=== PATIENT | female | born 1980 | race Caucasian/White ===

== ENCOUNTER 2016-08-05 18:02 | Emergency (ER) | payer BC ==
[2016-08-05 18:18] VITALS: BP 105/70
--- NOTE | 2016-08-05 18:47 | UC ---
Throat Pain/Nasal Gerald HPI - HPI Summary HPI Summary: SINUS PRESSURE AND PAIN FOR ONE WEEK NO FEVER. RIGHT SIDED SINUS PRESSURE WORSENING. - History of Current Complaint Chief Complaint: UC Stated Complaint: SINUS PAIN Time Seen by Provider: 08/05/16 18:17 Hx Obtained From: Patient Hx Last Menstrual Period: 20 weeks Onset/Duration: Gradual Onset, Lasting Weeks, Still Present Severity: Moderate Cough: Nonproductive Associated Signs & Symptoms: Positive: Sinus Discomfort, Nasal Discharge - Epiglottits Risk Factors Epiglottis Risk Factors: Negative - Allergies/Home Medications Allergies/Adverse Reactions: Allergies Allergy/AdvReac Type Severity Reaction Status Date / Time Latex Allergy Rash Verified 08/05/16 18:18 Oxycodone [From Percocet] Allergy Swelling Verified 08/05/16 18:18 Home Medications: Home Medications Prenat Vit W/ Iron Carbonyl-Fe [Ob Complete/Dha] 1 cap PO 08/05/16 [History] PMH/Surg Hx/FS Hx/Imm Hx Previously Healthy: Yes Respiratory History Of: Reports: Asthma, Bronchitis, Pneumonia GI/ History Of: Reports: Ulcer - Surgical History Surgical History: None - Family History Known Family History: Negative: Seizure Disorder - Social History Occupation: Employed Full-time Lives: With Family Alcohol Use: None Substance Use Type: None Smoking Status (MU): Never Smoked Tobacco Review of Systems Constitutional: Negative Skin: Negative Eyes: Negative ENT: Ear Ache, Nasal Discharge Respiratory: Cough Cardiovascular: Negative Gastrointestinal: Negative Genitourinary: Negative Motor: Negative Neurovascular: Negative Musculoskeletal: Negative Neurological: Negative Psychological: Negative All Other Systems Reviewed And Are Negative: Yes Physical Exam Triage Information Reviewed: Yes Appearance: Well-Appearing, Well-Nourished, Pain Distress - MILD Vital Signs: Initial Vital Signs Temp 98.7 F 08/05/16 18:10 Pulse 112 08/05/16 18:10 Resp 18 08/05/16 18:10 BP 105/70 08/05/16 18:10 Pulse Ox 98 08/05/16 18:10 Vital Signs Reviewed: Yes Eye Exam: Normal ENT: Positive: Nasal congestion, TM bulging, TM dull, Other: - RIGHT MAXILLARY TENDERNESS Dental Exam: Normal Neck exam: Normal Neck: Positive: Supple, Nontender, No Lymphadenopathy Respiratory Exam: Normal Respiratory: Positive: Chest non-tender, Lungs clear, Normal breath sounds, No respiratory distress, No accessory muscle use Cardiovascular Exam: Normal Cardiovascular: Positive: RRR, No Murmur, Pulses Normal Abdominal Exam: Normal Abdomen Description: Positive: Nontender, No Organomegaly Musculoskeletal Exam: Normal Musculoskeletal: Positive: Strength Intact, ROM Intact Neurological Exam: Normal Psychological Exam: Normal Psychological: Positive: Normal Response To Family Skin Exam: Normal Throat Pain/Nasal Course/Dx - Differential Dx/Diagnosis Differential Diagnosis/HQI/PQRI: Pharyngitis, Sinusitis, URI Provider Diagnoses: SINUSITIS Discharge - Discharge Plan Condition: Stable Disposition: HOME Prescriptions: Amoxicillin/Clavulanate TAB* [Augmentin TAB 875*] 875 mg PO BID #20 tab Patient Education Materials: Sinusitis (ED) Referrals: Aissatou Mendieta MD [Primary Care Provider] -
== END 2016-08-05 18:48 | disposition home or self-care (01) ==
LOC: UCEAST 18:02
DX: O26.892 Other specified pregnancy related conditions, second trimester (principal); Z3A.20 20 weeks gestation of pregnancy; J32.9 Chronic sinusitis, unspecified; Z88.5 Allergy status to narcotic agent
CPT/HCPCS: 99212; G0463

== ENCOUNTER 2017-01-11 11:16 | Emergency (ER) | payer BC ==
[2017-01-11] MEDS ORDERED: Magnesium CITRATE* 300 ML BTL PO ONE (12:23)
[2017-01-11] MEDS ORDERED: NS 0.9% 1000 ML* 1,000 ML IV ONE (12:42)
[2017-01-11 14:34] VITALS: BP 128/79
--- NOTE | 2017-01-11 16:14 | ED ---
Abdominal Pain/Female - HPI Summary HPI Summary: Patient presents to ED with CC of constipation x 1 week. She is 2 weeks . She states she has had several issues with constipation in the past and has had to be manually disimpacted. She states she went to the pharmacy 2 hours ago and obtained an enema and mag citrate but has not gone yet. Last BM 1 week ago and was hard stool. She states the OTC medications make her feel ill and she prefers not to take anymore. Denies fevers, chills, sweats or weakness. Denies any other complaints at this time and is taking PO well. - History of Current Complaint Chief Complaint: EDAbdPain Stated Complaint: CONSTIPATION Time Seen by Provider: 01/11/17 12:01 Hx Obtained From: Patient ?: No Onset/Duration: Gradual Onset Timing: Constant Severity Initially: Moderate Severity Currently: Moderate Pain Intensity: 5 Pain Scale Used: 0-10 Numeric Location: Diffuse Radiates: No Character: Dull, Cramping Aggravating Factor(s): Nothing Alleviating Factor(s): Nothing Associated Signs and Symptoms: Positive: Negative - Risk Factors Ectopic Risk Factor: Negative Allergies/Adverse Reactions: Allergies Allergy/AdvReac Type Severity Reaction Status Date / Time Latex Allergy Rash Verified 08/05/16 18:18 Oxycodone [From Percocet] Allergy Swelling Verified 08/05/16 18:18 PMH/Surg Hx/FS Hx/Imm Hx Previously Healthy: Yes Respiratory History: Reports: Hx Asthma, Hx Pneumonia GI History: Reports: Hx Ulcer - Cancer History Cancer Type, Location and Year: none - Immunization History Hx Pertussis Vaccination: No Immunizations Up to Date: Unable to Obtain/Confirm Infectious Disease History: No Infectious Disease History: Denies: Traveled Outside the [place] in Last 30 Days - Family History Known Family History: Negative: Seizure Disorder - Social History Occupation: Unemployed Lives: With Family Alcohol Use: None Hx Substance Use: No Substance Use Type: Reports: None Hx Tobacco Use: No Smoking Status (MU): Never Smoked Tobacco Do You Chew or Dip Tobacco: No Have You Chewed or Dipped Tobacco in the LAST YEAR: No Review of Systems Constitutional: Negative Eyes: Negative Cardiovascular: Negative Respiratory: Negative Positive: Abdominal Pain, Other - constipation Positive: no symptoms reported, see HPI Musculoskeletal: Negative Neurological: Negative Psychological: Normal All Other Systems Reviewed And Are Negative: Yes Physical Exam Triage Information Reviewed: Yes Vital Signs On Initial Exam: Initial Vitals Temp Pulse Resp BP Pulse Ox 97.8 F 105 18 82/60 98 01/11/17 11:19 01/11/17 11:19 01/11/17 11:19 01/11/17 11:19 01/11/17 11:19 Vital Signs Reviewed: Yes Appearance: Positive: Well-Appearing, Well-Nourished Skin: Positive: Warm, Skin Color Reflects Adequate Perfusion Head/Face: Positive: Normal Head/Face Inspection Eyes: Positive: EOMI, BLANK, Conjunctiva Clear Neck: Positive: Supple, No Lymphadenopathy Respiratory/Lung Sounds: Positive: Clear to Auscultation, Breath Sounds Present Cardiovascular: Positive: Normal, RRR, Pulses are Symmetrical in both Upper and Lower Extremities Abdomen Description: Positive: Distended Musculoskeletal: Positive: Normal, Strength/ROM Intact Neurological: Positive: Sensory/Motor Intact, Alert, Oriented to Person Place, Time, Speech Normal Psychiatric: Positive: Normal - Mona Coma Scale Coma Scale Total: 15 Diagnostics - Vital Signs Vital Signs Temp Pulse Resp BP Pulse Ox 01/11/17 14:33 98 F 76 18 128/79 01/11/17 11:19 97.8 F 105 18 82/60 98 - Laboratory Lab Statement: Any lab studies that have been ordered have been reviewed, and results considered in the medical decision making process. Abdominal Pain Fem Course/Dx - Course Course Of Treatment: Patient given mag citrate 150 (she had already taken 150 2 hours prior) and lactulose. She refuses both of these meds. Iv fluids given. after 1.5 hours, patient requests to leave and provider stated she would be able to disimpact but it would not be immediate as the ED is very busy at this time. She is refusing other medications stating they make her abdomen hurt and she feels a "mass" in her rectum. She has had this issue several times before and has disimpacted herself in the past. She has appt with her PCP tomorrow and patient is told to follow up with her, GI referrals given and encouraged for any worsening symptoms to return to the ED for a manual disimpaction. No signs or symptoms of bowel obstruction otherwise. - Diagnoses Differential Diagnosis: Positive: Bowel Obstruction, Constipation Provider Diagnoses: Constipation Discharge - Discharge Plan Condition: Stable Disposition: HOME Patient Education Materials: Constipation (ED) Referrals: Aissatou Mendieta MD [Primary Care Provider] - Additional Instructions: Follow up with Dr. Hussein or Dr. Black next week Follow up with your PCP If symptoms become worse, you can come back to the ED immediately as discussed
== END 2017-01-11 14:33 | disposition home or self-care (01) ==
LOC: ED 11:16
DX: K59.00 Constipation, unspecified (principal); J45.909 Unspecified asthma, uncomplicated; Z88.5 Allergy status to narcotic agent
CPT/HCPCS: 96360; 99282; A9270-GY

== ENCOUNTER 2018-01-17 09:26 | Emergency (ER) | payer BC ==
--- NOTE | 2018-01-17 09:59 | ED ---
Upper Extremity Pain - HPI Summary HPI Summary: 37-year-old female presents with rash to her right elbow for the past month. States that a month ago she fell on her elbow and had an abrasion to that area. She states that she has been soaking it in Epsom salt for the past month. She states she did not realize a month had past till today with the abrasion not healing. she states there has been drainage from the abrasion. She states that her elbow feels warm. She has full range of motion. No numbness or tingling. She states that it is itchy. She denies any fevers. She states the scaling on the area started a couple days ago. She denies any chest pain shortness of breath. No chills. She states that she's been having right-sided rib pain. States she's had this before. States she is currently breast- feeding. She denies any redness to her breast. - History of Current Complaint Chief Complaint: EDGeneral Stated Complaint: RT ELBOW RASH Time Seen by Provider: 01/17/18 09:41 Hx Last Menstrual Period: 20 weeks - Allergies/Home Medications Allergies/Adverse Reactions: Allergies Allergy/AdvReac Type Severity Reaction Status Date / Time latex Allergy Rash Verified 01/17/18 09:49 PMH/Surg Hx/FS Hx/Imm Hx Endocrine/Hematology History: Denies: Hx Diabetes Respiratory History: Reports: Hx Asthma, Hx Pneumonia GI History: Reports: Hx Ulcer - Cancer History Cancer Type, Location and Year: none Infectious Disease History: No Infectious Disease History: Denies: Traveled Outside the [place] in Last 30 Days - Family History Known Family History: Negative: Seizure Disorder - Social History Alcohol Use: None Hx Substance Use: No Substance Use Type: Reports: None Hx Tobacco Use: No Smoking Status (MU): Never Smoked Tobacco Review of Systems Negative: Fever Positive: Other - rib pain. Negative: Chest Pain Negative: Shortness Of Breath Positive: Myalgia - right elbow pain Positive: Rash All Other Systems Reviewed And Are Negative: Yes Physical Exam Triage Information Reviewed: Yes Vital Signs On Initial Exam: Initial Vitals Temp Pulse Resp BP Pulse Ox 99.2 F 71 15 104/63 98 01/17/18 09:34 01/17/18 09:34 01/17/18 09:34 01/17/18 09:34 01/17/18 09:34 Vital Signs Reviewed: Yes Appearance: Positive: Well-Appearing Skin: Positive: Warm, Dry, Other - lesion on right elbow olecranon, erythema with scaling around olecranon Head/Face: Positive: Normal Head/Face Inspection Eyes: Positive: Normal, Conjunctiva Clear ENT: Positive: Pharynx normal Respiratory/Lung Sounds: Positive: Clear to Auscultation, Breath Sounds Present , Other - tenderness right side of ribs, normal breast no erythema Cardiovascular: Positive: Normal, RRR Musculoskeletal: Positive: Strength/ROM Intact - right elbow, Edema Right - elbow minimal, Other - good pulses Neurological: Positive: Normal Psychiatric: Positive: Normal Diagnostics - Vital Signs Vital Signs Temp Pulse Resp BP Pulse Ox 01/17/18 09:34 99.2 F 71 15 104/63 98 - Laboratory Lab Statement: Any lab studies that have been ordered have been reviewed, and results considered in the medical decision making process. - Radiology elbow Xray Interpretation: No Acute Changes Radiology Interpretation Completed By: Radiologist Course/Dx - Course Course Of Treatment: 37-year-old female presents with rash to her right elbow for the past month. States that a month ago she fell on her elbow and had an abrasion to that area. She states that she has been soaking it in Epsom salt for the past month. She states she did not realize a month had past till today with the abrasion not healing. she states there has been drainage from the abrasion. She states that her elbow feels warm. She has full range of motion. No numbness or tingling. She states that it is itchy. She denies any fevers. She states the scaling on the area started a couple days ago. She denies any chest pain shortness of breath. No chills. She states that she's been having right-sided rib pain. States she's had this before. States she is currently breast-feeding. She denies any redness to her breast. on exam has 1cm by 1cm lesion in center of olecranon with minimal surround erythema. has another lesion that is erythematous with scaling adjacent to the area. full ROM elbow. elbow xray normal. no joint effusion. will treat as potential cellulitis with keflex and due to scaling with give topical antifungal. patient also requesting diflucain as gets frequent yeast infection. patient understand and agrees with plan. - Diagnoses Differential Diagnosis/HQI/PQRI: Positive: Septic Arthritis, Other - cellulitis , abscess Provider Diagnoses: Traumatic open wound of right elbow with infection and delayed healing Discharge - Sign-Out/Discharge Documenting (check all that apply): Patient Departure - Discharge Plan Condition: Good Disposition: HOME Prescriptions: Cephalexin CAP* [Keflex CAP*] 500 mg PO BID #20 cap Fluconazole [Diflucan 150 MG (NF)] 150 mg PO ONCE #1 tab Ketoconazole 2 % CREAM (NF) [Nizoral 2% CREAM (NF)] 1 applic TOPICAL DAILY #1 tube Patient Education Materials: Cellulitis (ED) Referrals: Aissatou Mendieta MD [Primary Care Provider] - Additional Instructions: Take Keflex twice a day for 10 days Take diflucain if get yeast infection once apply ketoconazole to area of scaling daily Follow up with primary within 5 days Return to ED if develop fever, area of redness spreads, or any new or worsening symptoms - Billing Disposition and Condition Condition: GOOD Disposition: Home
--- NOTE | 2018-01-17 10:25 | RAD ---
INDICATION: Right elbow pain COMPARISON: None TECHNIQUE: AP, lateral, and oblique views were obtained. FINDINGS: The bony structures, joint spaces, and soft tissues are normal for age. There is no fat-pad displacement to suggest effusion IMPRESSION: NEGATIVE EXAMINATION
[2018-01-17 11:15] VITALS: BP 129/74
== END 2018-01-17 11:14 | disposition home or self-care (01) ==
LOC: ED 09:26
DX: S51.001A Unspecified open wound of right elbow, initial encounter (principal); L08.9 Local infection of the skin and subcutaneous tissue, unspecified; W19.XXXA Unspecified fall, initial encounter; Y92.9 Unspecified place or not applicable
CPT/HCPCS: 99282

== ENCOUNTER 2018-02-17 09:31 | Emergency (ER) | payer BC ==
--- NOTE | 2018-02-17 10:22 | ED ---
Progress - Progress Note Progress Note: Pt is a 37 y/o female who presents to the ED c/o SI. Tried to get pt to remove earrings and talked about proper piercing cleaning and hygiene. Pt took offense and became very resistant to speak about her mental health, stating that she needs to go home or speak to someone else because she does not feel safe. Will ask Dr. Quiroz to see pt, if he cannot then I will go back in. Course/Dx - Course Course Of Treatment: Dr. Quiroz accepts the pt. - Diagnoses Provider Diagnoses: Suicidal ideation Discharge - Sign-Out/Discharge Documenting (check all that apply): Sign-Out Patient Signing out patient TO: Russ Quiroz - Discharge Plan Referrals: Aissatou Mendieta MD [Primary Care Provider] - - Attestation Statements Document Initiated by Scribe: Yes Documenting Scribe: Stefani Díaz Provider For Whom Scribe is Documenting (Include Credential): Jeannette Palma MD Scribe Attestation: I, Stefani Díaz, scribed for Jeannette Palma MD on 02/17/18 at 1205.
--- NOTE | 2018-02-17 10:57 | ED ---
Psychiatric Complaint - HPI Summary HPI Summary: This patient is a 37 year old F presenting to [facility] accompanied by with a chief complaint of worsening suicidal ideation. She states she typically has SI , but she now finds it comforting. She denies any plans. She reports previous therapy and medication without relief. She reports recent stress due to strained parental and marital relationships. Patient is currently . Denies any other medical symptoms at this time. Denies drug or alcohol use besides medicinal marijuana. - History Of Current Complaint Chief Complaint: EDMentalHealth Time Seen by Provider: 02/17/18 10:36 Hx Obtained From: Patient Onset/Duration: Gradual Onset Timing: Constant Character: Depressed, Anxious Aggravating Factor(s): Recent Stress Alleviating Factor(s): Nothing Related History: Positive For: Prior Psychiatric Issues Has Suicidal: Reports: Thoughts. Denies: With A Plan Recent Stressor(s): family, , children - Allergies/Home Medications Allergies/Adverse Reactions: Allergies Allergy/AdvReac Type Severity Reaction Status Date / Time latex Allergy Rash Verified 02/17/18 09:51 oxycodone Allergy Hives Verified 02/17/18 10:35 PMH/Surg Hx/FS Hx/Imm Hx Endocrine/Hematology History: Denies: Hx Diabetes Respiratory History: Reports: Hx Asthma, Hx Pneumonia GI History: Reports: Hx Ulcer - Cancer History Cancer Type, Location and Year: none - Surgical History Surgery Procedure, Year, and Place: None. Infectious Disease History: No Infectious Disease History: Denies: Traveled Outside the [place] in Last 30 Days - Family History Known Family History: Negative: Seizure Disorder - Social History Alcohol Use: Occasionally Hx Substance Use: No Substance Use Type: Reports: Marijuana Substance Use Comment - Amount & Last Used: daily Hx Tobacco Use: No Smoking Status (MU): Never Smoked Tobacco Review of Systems Negative: Fever Positive: Anxious, Depressed All Other Systems Reviewed And Are Negative: Yes Physical Exam - Summary Physical Exam Summary: Appearance: Well appearing, no pain distress, Skin: warm, dry, reflects adequate perfusion Head/face: normal Eyes: EOMI, BLANK ENT: normal Neck: supple, non-tender Respiratory: CTA, breath sounds present Cardiovascular: RRR, pulses symmetrical Abdomen: non-tender, soft Bowel: present Musculoskeletal: normal, strength/ROM intact Neuro: normal, sensory motor intact, A&Ox3 Pysch: depressed affect, crying Triage Information Reviewed: Yes Vital Signs On Initial Exam: Initial Vitals Temp Pulse Resp BP Pulse Ox 97.3 F 62 16 135/72 98 02/17/18 09:42 02/17/18 09:42 02/17/18 09:42 02/17/18 09:42 02/17/18 09:42 Vital Signs Reviewed: Yes Diagnostics - Vital Signs Vital Signs Temp Pulse Resp BP Pulse Ox 02/17/18 09:42 97.3 F 62 16 135/72 98 - Laboratory Result Diagrams: 02/17/18 10:51 02/17/18 10:51 Lab Statement: Any lab studies that have been ordered have been reviewed, and results considered in the medical decision making process. Course/Dx - Course Course Of Treatment: 37 year old F presenting to [facility] accompanied by with a chief complaint of worsening suicidal ideation. Bloodwork and UA is obtained. Patient is cleared for mental health evaluation and is moved to the ED [facility]. - Differential Dx/Clinical Impression Provider Diagnosis: Depression Discharge - Sign-Out/Discharge Documenting (check all that apply): Patient Departure - stable - Discharge Plan Condition: Stable Disposition: HOME Patient Education Materials: Depression (ED) Referrals: Aissatou Mendieta MD [Primary Care Provider] - Additional Instructions: FOLLOW UP WITH DR. JAMES. RETURN TO ED FOR ANY NEW OR WORSENING SYMPTOMS. - Billing Disposition and Condition Condition: STABLE Disposition: Home - Attestation Statements Document Initiated by Lucretia: Yes Documenting Scribe: Kirsten Louise Provider For Whom Lucretia is Documenting (Include Credential): Russ Quiroz Scribe Attestation: Kirsten Siegel scribed for Russ Humphreyharish on 02/17/18 at 1738. Scribe Documentation Reviewed: Yes Provider Attestation: The documentation as recorded by the Kirsten duarte accurately reflects the service I personally performed and the decisions made by , Russ Quiroz
[2018-02-17 11:02] LABS: ABS Basophils 0.1 10^3/ul (0-0.2); ABS Eosinophils 0.2 10^3/ul (0-0.6); ABS Lymphocytes 1.5 10^3/ul (1.0-4.8); ABS Monocytes 0.4 10^3/ul (0-0.8); ABS Neutrophils 2.6 10^3/ul (1.5-7.7); ABS Nucleated RBC 0 10^3/ul; Eosinophil % 4.3 % (0-6); Hematocrit 41 % (35-47); Hemoglobin 13.5 g/dl (12.0-16.0); Lymphocyte % 31.5 % (25-47); Mean Corpuscular HGB Conc 33 g/dl (31-36); Mean Corpuscular Hemoglobin 31 pg (27-31); Mean Corpuscular Volume 92 fL (80-97); Mean Platelet Volume 8.2 um3 (7.4-10.4); Nucleated Red Blood Cells % 0.1; Platelet Count 255 10^3/ul (150-450); Red Blood Count 4.41 10^6/ul (4.00-5.40); Red Cell Distribution Width 13 % (10.5-15); White Blood Count 4.8 10^3/ul (3.5-10.8)
[2018-02-17 11:22] LABS: EGFR Non-African American 100.2 (>60)
[2018-02-17 11:25] LABS: Urine Appearance Cloudy; Urine Blood Negative (Negative); Urine Color Yellow; Urine Ketones Trace (Negative); Urine Protein Negative (Negative); Urine Red Blood Cell Absent (Absent); Urine Specific Gravity 1.024 (1.010-1.030); Urine Urobilinogen Negative (Negative); Urine White Blood Cell Trace(0-5/hpf) (Absent)
--- NOTE | 2018-02-17 16:21 | ED ---
Progress - Progress Note Progress Note: AT 1625: Retail Loan Officer from [facility] came to discuss patient disposition with Dr. Russ Quiroz. Patient was recommended to be discharged by [facility]. Dr. Russ Quiroz stated that she was very depressed, very upset and crying. It was found that Dr. James was did not consult with patient and Dr. Quiroz recommended that she be admitted. He asked screening representative to ask Dr. James to consult with patient and consult with him if need be. Dr. Quiroz is concerned for the patient as she has a child at home. AT 1646: Patient care was discussed between Dr. James and Dr. Quiroz. As per Dr. James, he consulted with the patient and stated that he believes that she cares about her children and he thinks that she is safe around her kids. Additionally, she is with a friend who is offering support and she will consider coming back if her symptoms come back/continues or worsens. She denies any SI or HI. He offered volunteered admission, but she refused as she will come back if symptoms progress. He recommends discharging patient and will follow up with him. - Consult/PCP Time Called: 12:24 Course/Dx - Course Course Of Treatment: A 37 y/o female presents to ED c/o SI. No laboratory scans were done. Blood work and UA was done and within normal limits. In the ED course , the patient recieved no medications. Patient care was discussed with psychiatrist, Dr. James, who recommends discharging patient. Patient will be discharged with a diagnosis of depression. Patient is to follow up with Dr. James. Patient is agreeable with this plan. - Diagnoses Provider Diagnoses: Depression - Provider Notifications Discussed Care Of Patient With: Dusty James Time Discussed With Above Provider: 16:46 Instructed by Provider To: Other - Recommends discharged. Please see progress note. Discharge - Sign-Out/Discharge Documenting (check all that apply): Patient Departure - DISCHARGE - Discharge Plan Condition: Stable Disposition: HOME Patient Education Materials: Depression (ED) Referrals: Aissatou Mendieta MD [Primary Care Provider] - Additional Instructions: FOLLOW UP WITH DR. JAMES. RETURN TO ED FOR ANY NEW OR WORSENING SYMPTOMS. - Billing Disposition and Condition Condition: STABLE Disposition: Home - Attestation Statements Document Initiated by Scribe: Yes Documenting Scribe: Viet Mckeon Provider For Whom Scribe is Documenting (Include Credential): Russ Quiroz Scribe Attestation: IViet, scribed for Russ Quiroz on 02/17/18 at 1739. Scribe Documentation Reviewed: Yes Provider Attestation: The documentation as recorded by the [email or web address] accurately reflects the service I personally performed and the decisions made by me, Russ Quiroz
--- NOTE | 2018-02-17 17:37 | PN ---
ED Flex Patient Progress Note Date of Service: 02/17/18 Subjective: 37 y.o. white female with a history of post- depression who presented with SI and thoughts to jump of a bridge. Patient was scared by thoughts and came for evaluation and referral to outpatient care. She declines voluntary admission, christophe for safety and voicing her love for her 3 children as a motivation to continue living. She would like referral to [facility]. Her friend, Trudy Mcdaniel, is present and vouches for the patient's safety. The patient denies infanticidal thoughts and agrees to return to the hospital if SI intensifies or suicidal planning/intent ensues. Objective: Young white female with glasses in blue scrubs; laughing at times but tearful others; denies current SI/HI; insight intact Assessment: Depression, NOS Plan: Patient declines admission and does not meet legal standard for 9.39. D/C to home. F/u at [facility] within next two days. Return to ED in event of worsening symptoms. Vital Signs Temp Pulse Resp BP Pulse Ox 99.7 F 67 17 108/59 98 02/17/18 12:46 02/17/18 12:46 02/17/18 12:46 02/17/18 12:46 02/17/18 12:46 Lab Results - Entire Visit 02/17/18 02/17/18 02/17/18 11:04 11:04 10:51 WBC RBC Hgb Hct MCV MCH MCHC RDW Plt Count MPV Neut % (Auto) Lymph % (Auto) [place] % (Auto) Eos % (Auto) Baso % (Auto) Absolute Neuts (auto) Absolute Lymphs (auto) Absolute Monos (auto) Absolute Eos (auto) Absolute Basos (auto) Absolute Nucleated RBC Nucleated RBC % Sodium 139 Potassium 4.0 Chloride 109 Carbon Dioxide 22 Anion Gap 8 BUN 11 Creatinine 0.66 Est GFR ( Amer) 121.3 Est GFR (Non-Af Amer) 100.2 BUN/Creatinine Ratio 16.7 Glucose 93 Calcium 9.4 Total Bilirubin 0.90 AST 13 ALT 13 Alkaline Phosphatase 89 Total Protein 7.2 Albumin 4.4 Globulin 2.8 Albumin/Globulin Ratio 1.6 TSH 0.93 Beta HCG, Quant < 0.60 Urine Color Yellow Urine Appearance Cloudy Urine pH 7.0 Ur Specific [place] 1.024 Urine Protein Negative Urine Ketones Trace A Urine Blood Negative Urine Nitrate Negative Urine Bilirubin Negative Urine Urobilinogen Negative Ur Leukocyte Esterase Trace A Urine WBC (Auto) Trace(0-5/hpf) Urine RBC (Auto) Absent Ur Squamous Epith Cells Present A Urine Bacteria Absent Urine Glucose Negative Salicylates < 2.50 Urine Opiates Screen None detected Acetaminophen < 15 Ur Barbiturates Screen None detected Ur Phencyclidine Scrn None detected Ur Amphetamines Screen None detected U Benzodiazepines Scrn None detected Urine Cocaine Screen None detected U Cannabinoids Screen Presumptive positive A Serum Alcohol < 10 02/17/18 10:51 WBC 4.8 RBC 4.41 Hgb 13.5 Hct 41 MCV 92 MCH 31 MCHC 33 RDW 13 Plt Count 255 MPV 8.2 Neut % (Auto) 54.9 Lymph % (Auto) 31.5 [place] % (Auto) 7.5 H Eos % (Auto) 4.3 Baso % (Auto) 1.8 Absolute Neuts (auto) 2.6 Absolute Lymphs (auto) 1.5 Absolute Monos (auto) 0.4 Absolute Eos (auto) 0.2 Absolute Basos (auto) 0.1 Absolute Nucleated RBC 0 Nucleated RBC % 0.1 Sodium Potassium Chloride Carbon Dioxide Anion Gap BUN Creatinine Est GFR ( Amer) Est GFR (Non-Af Amer) BUN/Creatinine Ratio Glucose Calcium Total Bilirubin AST ALT Alkaline Phosphatase Total Protein Albumin Globulin Albumin/Globulin Ratio TSH Beta HCG, Quant Urine Color Urine Appearance Urine pH Ur Specific [place] Urine Protein Urine Ketones Urine Blood Urine Nitrate Urine Bilirubin Urine Urobilinogen Ur Leukocyte Esterase Urine WBC (Auto) Urine RBC (Auto) Ur Squamous Epith Cells Urine Bacteria Urine Glucose Salicylates Urine Opiates Screen Acetaminophen Ur Barbiturates Screen Ur Phencyclidine Scrn Ur Amphetamines Screen U Benzodiazepines Scrn Urine Cocaine Screen U Cannabinoids Screen Serum Alcohol
[2018-02-17 19:27] VITALS: BP 100/67
== END 2018-02-17 16:50 | disposition home or self-care (01) ==
LOC: ED 09:31
DX: F32.9 Major depressive disorder, single episode, unspecified (principal); R45.851 Suicidal ideations; Z88.5 Allergy status to narcotic agent; Z91.040 Latex allergy status
CPT/HCPCS: 36415; 80053; 80307; 80320; 80329; 81003; 81015; 84443; 84702; 85025; 86703; 87086; 99284; G0480

== ENCOUNTER 2018-04-17 08:43 | Emergency (ER) | payer BC, MEDICAID ==
--- NOTE | 2018-04-17 09:24 | ED ---
Neurological HPI - HPI Summary HPI Summary: Patient is a 37 y/o F w/ c/o "pulling to her left" and bumping into objects more frequently since yesterday. She also reports experiencing episodes of this alongside headaches, difficulty remembering words, dropping objects, memory loss , nausea and photophobia for "some time". Numbness/weakness is denied. Patient states that she typically has HAs daily but notes that she has not had one today. Patient used to have a neurologist, does not have one currently. PMHx of migraines, depression, and anxiety is reported. Patient also states that she "thinks" she had a seizure ten years ago. Patient followed up with her neurologist who was reported to have been unconcerned about the episode. She is on clonazepam 0.5 mg for anxiety, she notes that she is not on an anti- depressant. On triage, pain is denied. Home medications and allergies are reviewed. - History of Current Complaint Chief Complaint: EDHeadache Stated Complaint: MIGRAINE Time Seen by Provider: 04/17/18 09:00 Hx Obtained From: Patient Hx Last Menstrual Period: 20 weeks Onset/Duration: Started days ago - increased episodes of "pulling to the left" since yesterday, Worse Since - yesterday Timing: Intermittent Episodes Lasting: Current Severity: None - pain is denied Pain Intensity: 0 Pain Scale Used: 0-10 Numeric - 0/10 Character: Other: - "pulling to the left", headaches, difficulty remembering words, dropping objects, nausea and photophobia Aggravating: Bright Lights Alleviating: Nothing Associated Signs and Symptoms: Positive: Headache, Memory Loss, Nausea/Vomiting - NAUSEA - Allergy/Home Medications Allergies/Adverse Reactions: Allergies Allergy/AdvReac Type Severity Reaction Status Date / Time latex Allergy Rash Verified 04/17/18 08:56 oxycodone Allergy Hives Verified 04/17/18 08:56 PMH/Surg Hx/FS Hx/Imm Hx Endocrine/Hematology History: Denies: Hx Diabetes Respiratory History: Reports: Hx Asthma, Hx Pneumonia GI History: Reports: Hx Ulcer Psychiatric History: Reports: Hx of Violent Episodes Against Others Denies: Hx Eating Disorder - Cancer History Cancer Type, Location and Year: none - Surgical History Surgery Procedure, Year, and Place: None. Infectious Disease History: No Infectious Disease History: Denies: Traveled Outside the [place] in Last 30 Days - Family History Known Family History: Negative: Seizure Disorder - Social History Alcohol Use: Occasionally Hx Substance Use: No Substance Use Type: Reports: Marijuana Substance Use Comment - Amount & Last Used: daily Hx Tobacco Use: No Smoking Status (MU): Never Smoked Tobacco Review of Systems Positive: Photophobia Positive: Nausea Neurological: Other - difficulty remembering words, dropping objects, "pulling to her left" and bumping into objects Positive: Headache - none today . Negative: Weakness, Numbness All Other Systems Reviewed And Are Negative: Yes Physical Exam - Summary Physical Exam Summary: Appearance: Well appearing, no pain distress Skin: warm, dry, reflects adequate perfusion Head/face: normal Eyes: EOMI, BLANK ENT: normal Neck: supple, non-tender Respiratory: CTA, breath sounds present Cardiovascular: RRR, pulses symmetrical Abdomen: non-tender, soft Bowel: present Musculoskeletal: normal, strength/ROM intact Neuro: normal, sensory motor intact, A&Ox3; GCS 15 Triage Information Reviewed: Yes Vital Signs On Initial Exam: Initial Vitals Temp Pulse Resp BP Pulse Ox 99.0 F 84 14 107/57 100 04/17/18 08:46 04/17/18 08:46 04/17/18 08:46 04/17/18 08:46 04/17/18 08:46 Vital Signs Reviewed: Yes Diagnostics - Vital Signs Vital Signs Temp Pulse Resp BP Pulse Ox 04/17/18 08:46 99.0 F 84 14 107/57 100 - Laboratory Result Diagrams: 04/17/18 09:46 04/17/18 09:46 Lab Statement: Any lab studies that have been ordered have been reviewed, and results considered in the medical decision making process. - CT BRAIN CT CT Interpretation Completed By: Radiologist Summary of CT Findings: No evidence for acute intracranial abnormality. This report was reviewed by ED physician. - EKG 1014 Cardiac Rate: Bradycardia - rate of 57 BPM EKG Rhythm: Sinus Bradycardia Summary of EKG Findings: no acute changes Re-Evaluation - Re-Evaluation First Eval Re-Evaluation Time: 11:10 Comment: Results of labs and tests were discussed with patient. Patient will be discharged to home and will follow up with a neurologist. Patient is agreeable with this plan. Course/Dx - Course Course Of Treatment: Patient is a 37 y/o F w/ c/o "pulling to her left" and bumping into objects more frequently since yesterday. She also reports experiencing episodes of this alongside headaches, difficulty remembering words , dropping objects, memory loss, nausea and photophobia for "some time". Numbness/weakness is denied. Neuro exam was normal, sensory motor intact, A&Ox3 , GCS 15. Bloodwork was obtained. Brain CT showed no evidence for acute intracranial abnormality. EKG showed sinus bradycardia with rate of 57 BPM, no acute changes. Results of labs and tests were discussed with patient. Patient will be discharged to home and will follow up with a neurologist. Patient is agreeable with this plan. Dx of headache and dizziness. - Differential Dx Differential Diagnoses Neuro: Positive: Headache, Seizure Disorder, Other - dizziness - Diagnoses Provider Diagnoses: Headache, Dizziness Discharge - Sign-Out/Discharge Documenting (check all that apply): Patient Departure - discharge - Discharge Plan Condition: Stable Disposition: HOME Patient Education Materials: Dizziness (ED), General Headache (ED) Referrals: Ana Rico MD [Medical Doctor] - 3 Days Additional Instructions: FOLLOW UP WITH NEUROLOGIST IN THREE DAYS. RETURN TO ED FOR ANY NEW OR WORSENING SYMPTOMS. - Billing Disposition and Condition Condition: STABLE Disposition: Home - Attestation Statements Document Initiated by Scribe: Yes Documenting Scribe: Gerard Dos Santos Provider For Whom Lucretia is Documenting (Include Credential): Russ Quiroz MD Scribe Attestation: Gerard Siegel , scribed for Russ Quiroz MD on 04/17/18 at 1321. Scribe Documentation Reviewed: Yes Provider Attestation: The documentation as recorded by the Gerard duarte accurately reflects the service I personally performed and the decisions made by me, Russ Quiroz MD
[2018-04-17 09:55] LABS: ABS Basophils 0 10^3/ul (0-0.2); ABS Eosinophils 0.3 10^3/ul (0-0.6); ABS Lymphocytes 1.4 10^3/ul (1.0-4.8); ABS Monocytes 0.3 10^3/ul (0-0.8); ABS Nucleated RBC 0 10^3/ul; Eosinophil % 7.3 % (0-6); Hematocrit 40 % (35-47); Hemoglobin 13.5 g/dl (12.0-16.0); Lymphocyte % 34.9 % (25-47); Mean Corpuscular HGB Conc 34 g/dl (31-36); Mean Corpuscular Hemoglobin 31 pg (27-31); Mean Corpuscular Volume 92 fL (80-97); Mean Platelet Volume 8.3 um3 (7.4-10.4); Nucleated Red Blood Cells % 0.1; Platelet Count 213 10^3/ul (150-450); Red Blood Count 4.36 10^6/ul (4.00-5.40); Red Cell Distribution Width 14 % (10.5-15)
[2018-04-17 10:12] LABS: EGFR Non-African American 92.1 (>60)
--- NOTE | 2018-04-17 11:04 | RAD ---
INDICATION: Headache and ataxia. COMPARISON: There are no relevant prior studies available for comparison. TECHNIQUE: Contiguous axial sections of the brain were obtained from the skull base to the vertex without contrast. FINDINGS: The ventricles, cisterns and sulci are within normal limits. No significant focal abnormality or mass effect is seen. There is no evidence for hemorrhage. No significant focal osseous abnormality is seen. The visualized portion of the paranasal sinuses and mastoid air cells appear clear. IMPRESSION: NO EVIDENCE FOR ACUTE INTRACRANIAL ABNORMALITY.
[2018-04-17 11:38] VITALS: BP 114/61
== END 2018-04-17 11:38 | disposition home or self-care (01) ==
LOC: ED 08:43
DX: O26.892 Other specified pregnancy related conditions, second trimester (principal); R51 Headache; R42 Dizziness and giddiness; R00.1 Bradycardia, unspecified; Z3A.20 20 weeks gestation of pregnancy; Z88.5 Allergy status to narcotic agent; Z91.040 Latex allergy status
CPT/HCPCS: 36415; 70450; 80053; 84484; 84702; 85025; 93005; 99281

== ENCOUNTER 2018-12-14 09:01 | Emergency (ER) | payer BC, OTHER ==
[2018-12-14 09:15] VITALS: BP 90/79
--- NOTE | 2018-12-14 09:29 | UC ---
Throat Pain/Nasal Gerald HPI - HPI Summary HPI Summary: sinus pain and pressure x 10 days, nasal congestion , nasal discharge, with yellow / green discharge + pnd, dry cough , chest tightness with wheezing, no fever, + chills - History of Current Complaint Chief Complaint: UCRespiratory Stated Complaint: SINUS ISSUE Time Seen by Provider: 12/14/18 09:17 Hx Obtained From: Patient Hx Last Menstrual Period: 20 weeks ?: No Onset/Duration: Gradual Onset, Lasting Days - 10, Still Present Severity: Moderate Pain Intensity: 7 Cough: Nonproductive Associated Signs & Symptoms: Positive: Wheezing, Hoarseness, Sinus Discomfort, Nasal Discharge. Negative: Dysphagia, Fever, Vomiting, Rash - Allergies/Home Medications Allergies/Adverse Reactions: Allergies Allergy/AdvReac Type Severity Reaction Status Date / Time latex Allergy Rash Verified 12/14/18 09:15 oxycodone Allergy Hives Verified 12/14/18 09:15 PMH/Surg Hx/FS Hx/Imm Hx Respiratory History: Asthma - Surgical History Surgical History: None Surgery Procedure, Year, and Place: None. - Family History Known Family History: Negative: Seizure Disorder - Social History Alcohol Use: Rare Substance Use Type: None Substance Use Comment - Amount & Last Used: daily Smoking Status (MU): Never Smoked Tobacco Review of Systems All Other Systems Reviewed And Are Negative: Yes Constitutional: Positive: Chills, Fatigue Skin: Positive: Negative Eyes: Positive: Negative ENT: Positive: Nasal Discharge, Sinus Congestion, Sinus Pain/Tenderness Respiratory: Positive: Cough Cardiovascular: Positive: Negative Is Patient Immunocompromised?: No Physical Exam Triage Information Reviewed: Yes Appearance: Well-Appearing, No Pain Distress, Well-Nourished Vital Signs: Initial Vital Signs Temp 99.9 F 12/14/18 09:09 Pulse 119 12/14/18 09:09 Resp 21 12/14/18 09:09 BP 90/79 12/14/18 09:09 Pulse Ox 98 12/14/18 09:09 Vital Signs Reviewed: Yes Eye Exam: Normal Eyes: Positive: Conjunctiva Clear ENT: Positive: Normal ENT inspection, Hearing grossly normal, Pharynx normal, Nasal congestion, Nasal drainage, TMs normal, Sinus tenderness. Negative: TM bulging, TM dull, TM red, Tonsillar swelling, Tonsillar exudate Neck: Positive: Supple, Nontender, No Lymphadenopathy Respiratory: Positive: Chest non-tender, Wheezing Cardiovascular: Positive: Tachycardia Abdominal Exam: Normal Skin Exam: Normal Throat Pain/Nasal Course/Dx - Differential Dx/Diagnosis Provider Diagnosis: Sinusitis, Asthma Discharge - Sign-Out/Discharge Documenting (check all that apply): Patient Departure All imaging exams completed and their final reports reviewed: No Studies - Discharge Plan Condition: Stable Disposition: HOME Prescriptions: Albuterol HFA INHALER* [Ventolin HFA Inhaler*] 2 puff INH Q6H PRN #1 mdi PRN Reason: Wheezing Amoxicillin/Clavulanate TAB* [Augmentin TAB 875*] 875 mg PO BID #20 tab predniSONE [Prednisone 20 MG TAB] 40 mg PO DAILY #10 tablet Patient Education Materials: Asthma (ED), Sinusitis (ED) Referrals: Aissatou Mendieta MD [Primary Care Provider] - 7 Days - Billing Disposition and Condition Condition: STABLE Disposition: Home
== END 2018-12-14 09:30 | disposition home or self-care (01) ==
LOC: UCEAST 09:01
DX: O26.892 Other specified pregnancy related conditions, second trimester (principal); J32.9 Chronic sinusitis, unspecified; J45.909 Unspecified asthma, uncomplicated; Z88.5 Allergy status to narcotic agent; Z91.040 Latex allergy status; Z3A.20 20 weeks gestation of pregnancy
CPT/HCPCS: 99212; G0463

== ENCOUNTER 2018-12-24 09:35 | Emergency (ER) | payer BC, OTHER ==
--- OUTSIDE RECORDS SUMMARY | 2018-12-24 09:41 | XMS REPORT | Continuity of Care Document ---
:1980 External Reference #:[id number] Author Name Mary Luciano Care Team Providers Name Role Phone Aissatou Reynoso MD Primary Care Physician Unavailable Payers Date Identification Numbers Payment Provider Subscriber PayID: [id number] BS Facets Abdoul Astorga [address] [address] [place] [address] Policy Number: [id number] [employer] Medicaid Latisha Kennedy PayID: [id number] [address] [address] [place] [address] Family History Date Family Member(s) Observation Comments Father Hypertension Father Obesity Father Arthritis Father anxiety Father Depression Father Seasonal Allergies Father eczema Father Irritable bowel syndrome Father Alcoholism Father sleep narcolepsy Mother psychiatric disorder Mother Asthma Mother munchausen by proxy Children 1 Anxiety, depression, allergies, TB Children 2 Anxiety, asthma, allergies, Irritable bowel syndrome, sees customer support advisor for "funny valve" First Brother Arthritis First Brother anxiety First Brother Alcoholism First Sister anxiety First Sister Depression First Sister Alcoholism First Sister endometriosis Paternal Grandfather due to Heart Disease () Paternal Grandmother due to Cancer () Paternal Grandmother due to psychiatric () disorder Paternal Grandmother due to anxiety () Paternal Grandmother due to depression () Maternal Grandfather due to Heart Disease () Maternal Grandmother due to Cancer () Maternal Grandmother due to anxiety () Maternal Grandmother due to Irritable () bowel syndrome Social History Type Date Description Comments Sex Unknown Lives With Children Tobacco Use Start: Unknown Never Smoked Cigarettes ETOH Use Denies alcohol use Recreational Drug Use Sporadically uses Marijuana Exercise Type/Frequency Exercises regularly Allergies, Adverse Reactions, Alerts Active Allergies Reaction Severity Comments Date Percocet Facial swelling 12/22/2018 Medications Active Medications SIG Qnty Indications Ordering Provider Date Albuterol Sulfate HFA one puff every 6 Unknown hours 108(90Base) mcg/Act Aerosol Xanax one by mouth Unknown 0.25mg Tablets twice daily as needed for anxiety Zyrtec Allergy 1 by mouth every Unknown 10mg day Tablets Clonazepam take 1/2 to 1 Unknown 0.5mg Tablets tablet as needed anxiety and sleep Azelastine HCL one drop each eye Unknown (Ophthalmic) twice a day 0.05% Solution Amoxicillin/Clavulanat take one tablet Unknown e Potassium q12 hours for 10 875-125mg days Tablets Vital Signs Date Vital Result Comment 12/22/2018 8:00am Height 64 inches 5'4" Weight 125.12 lb Heart Rate 100 /min BP Systolic 102 mmHg BP Diastolic 70 mmHg O2 % BldC Oximetry 98 % BMI (Body Mass Index) 21.5 kg/m2 Results Test Date Facility Test Result H/L Range Note Thyroid Panel 12/22/2018 [facility] Free T4 (Free <pending> [address] Thyroxine) [place] [address] [phone] Thyroxine <pending> TSH (Thyroid Stim Horm) <pending> Laboratory test 12/22/2018 [facility] Thyroperoxidase AB < pending> [place] [address] [place] [address] [phone] Thyroglobulin AB <pending> T3 Free <pending> Selenium <pending> Hemoglobin A1c (Glyco HGB) <pending> Laboratory test 12/22/2018 [facility] Insulin Level <pending> [place] [address] [place] [address] [phone] Laboratory test 12/22/2018 [facility] Copper, Serum <pending> [place] [address] [place] [address] [phone] Zinc Serum <pending> Vitamin B12 And Folate 12/22/2018 [facility] Vitamin B12 < pending> Serum [address] [place] [address] [phone] Folic Acid (Folate) <pending> Laboratory test 12/22/2018 [facility] Methylmalonic Acid < pending> finding [address] [place] [address] [phone] Plan of Treatment Future Appointment(s):01/06/2019 9:00 am - Sophie Chang N.P. at [facility]12/22/2018 - Rosey Valdesch, [id number] Other migraine, not intractable, without status migrainosusRecommendations:consider elimination diet -J45.998 Other asthmaRecommendations:Triggers for your allergies/asthma: 1. Food intolerances: Food intolerances are very common in people with asthma, especially to gluten and dairy. 2. Digestive Problems:SIBO, fungal overgrowth, dysbiosis, intestinal permeability 3. Environmental Toxins: pollen, mold, ect 4. HPA [place] Dysregulation - stress, sleep deprivation Here are some simple things you can try to get to the root of the problem and re-balance and cool off your immune system: Do an elimination diet to get rid of the most common food allergens. Gluten and dairy are the biggest culprits! Look for other causes (food additives, pesticides, chemicals, pollution in your environment). Consider taking antifungal herbs such as oregano or medication, such as Diflucan or Nystatin Take probiotics. Ther-Biotic Complete, two capsules twicea day Take fish oil, which is anti-inflammatory. Omegagenics 720 one or two capsules twice a day. ??allergy - can take plant base EPA/DHA (around 2000- 3000 mg daily) - increase hemp pil, flax seed oil Take extra zinc. Zinc Citrate , 30mg one capsule once to twice a day Quercertin 500 mg daily Vitamin D3 3000 IUs daily Vitamin C 1000- 2000 mg daily Taken together, all of these nutrients have palliative, anti-inflammatory capability, especially the resolvins, quercetin as a potent antihistamine and boswellia as a LOX inhibitor. sleep deprivation leads to many of the same kinds of changes in theimmune system that you see with stress. So you can see an increase in cortisol levels or eventually a decline in cortisol levels or inappropriate secretion of cortisol at the wrong times. You can see an increase in inflammatory markers, decrease in T regulatory cell function. All kinds of things that could be expected to trigger or exacerbate asthma and other immune dysfunctions. if asthma is severeand none of these other things have been helpful, it may be worth considering low-dose naltrexone. This is a low dose of a medication that reduces inflammation in the central nervous system and helps balance and regulate the immune system, in part by increasing endorphin production. Follow up at yourappointment with Allergy & Asthma in .7 FibromyalgiaRecommendations:Recommend an Elimination Diet ( AUTOIMMUNE PALEO DIET) - review the handouts and follow the elimination diet for 30-60 days removing gluten, grains, nightshades, sugar, dairy, eggs, corn, legumes. At the end of 30- 60 days as discussed add one food at a time - use the "Food Reintroduction" sheet and record the food and your symptoms. Example: Day 1 add "eggs" eating multiple times that day and wait 3-4 days before introducing the next food. This is because it can take 3-4 days for a food sensitivityto show up. During the elimination diet it is recommended you keep a food journal of what your eating and how you are feeling. Eating 3 meals a day is important focusing on healthy sources of protein and mostly plant based with goal 8-10 servings of vegetables a day. Preparing meals and your week will help you be successful. Making bone broth and drinking this 1-3x a day is very healing for the GItract and is a good source of protein. Pressure cookers are great kitchen tools and bone broth can be made in 3 hours, but a crock pot could be used which takes about 18-24 hour to make broth Add probiotic Increase fermented foods - sauerkraut, kimchi, kombucha (get the low sugar) - some people donot tolerate fermented foods - and can have increased gas and bloating - if this happens remove fermented foods - you may need further GI healing before reintroducing fermented foods. Tips?? The first 2 to 3 days are the hardest. It??s important to go shopping to get all of the foods you are allowed to have. ?? Plan your meals ?? Eat simply. Cook simply. Make a pot of aerqlmg-jghpktxnu-niiw. Make a large salad. Cook extra chicken. Have prepared food on hand so you can grabsomething quickly. ?? Eat regular meals. It may be helpful to cook extra chicken, sweet potatoes that can be reheated for snacking or another meal. ?? Avoid any foods that you know or believe you may be sensitive to, even if they are on the ?? allowed?? list. ?? Try to eat at least 6-10 servings of fresh vegetables each day. Choose at least one serving of dark green or orange vegetables (carrot, broccoli, winter squash) and one raw vegetable each day. Vary your selections. ?? Buy organic produce when possible. Select fresh foods whenever you can. If possible, choose organically grown fruits and vegetables to eliminate pesticide and chemical residue consumption. Washfruits and vegetables thoroughly. ?? Read oil labels; use only those that are obtained by a ??cold pressed?? method. ?? If you select animal sources of protein, look for free-range or organically raised chicken, turkey or feliciano. Cold-water fish (e.g., salmon, mackerel, and halibut) is another excellent source of protein and the omega-3 essential fatty acids, which are important nutrients in this diet. Fish is used extensively. ?? Remember to drink the recommended amount (at least two quarts) of plain, filtered water each day. ?? Adequate rest and stress reduction are also important to the success of this program. ?? You may use left overs for the next days?? meals or part of a meal, e.g. left over broiled salmon and broccoli from dinner as part of a large salad for lunch the next day. Nuts: Evidence has shown that soaking nuts, grains and seeds for several hours, dehydrating them at very low temperatures and then roasting or cooking them eliminates a large portion of phytates. Sprouting also activates phytase, thus reducing phytic acid even more. Phytic acid notonly grabs on to or chelates important minerals, but it also inhibits enzymes that we need to digestour food, including pepsin, which is needed for the breakdown of protein, and amylase, which is needed for the breakdown of starch into sugar. Trypsin, needed for protein digestion in the small intestine, is also inhibited by phytic acid. Additionally, the zinc and iron blocking effects of phytic acidcan be just as serious as the calcium blocking effects. If you are interested in learning how to soak and prepare them for easier digestion The [employer] is a great place to find thisinformation. In order to properly soak and dehydrate your nuts and seeds you will need a ware cleaner.I personally use and love this [employer] one but is pricey - if not roast on low in the over AFTER soaking. We should be in the habit of soaking all our nuts, grains, legumes ALWAYS for the reasons above - and I am sure there are more reasons Diet: AIP (autoimmune paleo) - mostly plant based with healthy sources of protein. No dairy, No grains, No sugar, No Nightshades, No eggs, No alcohol. Removesugar alcohols and only use very sparingly these have been shown to affect your microbiome in a negative way, some evidence that shows leads to obesity and continues to feed sugar cravings. Foods thatcan negatively impact immune function: Lectins: Lectins are carbohydrate-binding proteins that are present in all foods but can be difficult to digest and increase gut barrier damage. Toxic lectins arefound in legumes and grains. Soaking, sprouting, and fermenting decrease lectin content. Phytic Acid: phytic acid is a component of grains, seeds, and legumes that limits the activity of digestive enzymes. This can damage the gut barrier and contribute to dysbiosis. Soaking, sprouting, and fermentingdecrease phytic content. Gluten: gluten is a component of many grain products such as wheat, barley and rye. Exposure to gluten can activate zonulin in the intestines and contribute to intestinal permeability. Lactose and Casein: certain components of milk can contribute to intestinal permeability, especially if they have gone through traditional pasteurization and homogenization. The negative effects of the resulting protein changes can be decreased, as in the case of grass fed milk from cows. Nightshade: These plants contain an alkaloid that can be detrimental to the intestinal barrier. Nightshades include tomatoes, peppers, and eggplants. A good breakfast/snack: regina seed pudding with almond/cashew or hemp milk (unsweetened), 1 cup milk to 3 tablespoons regina seeds. add vanilla , cinnamon (no sugar), can also add unsweetened coconut flakes. Can top with berries, walnuts - high in fiber, protein and low carb. Can be made the night before. Smoothie: 1 canned coconut milk, cup of greens (kale,spinach), 1/2 avocado, a little water/ice, fresh jose (tablespoon or to taste), fresh or concentrated nez perce juice. Good Resources 1. Dr. Ajay Cox - Ketotarian Cookbook 2. Diet Doctor - www.dietdoctor.[employer] - low carb/keto diet website run by a physician great resource!! 3. Dr. Conor Aaron - two books: The Galen protocol and her cookbook: "Cooking for Life"- Highly Recommend the Galen Protocol 4. Dr. Simon Mcleod - Holistic psychiatrist [email or web address]/F41.9 Anxiety disorder, unspecifiedRecommendations:engaging any mindfulness practice daily will also help heal your HPA axis dysregulation. guided meditation, consider [facility] dejah STRESS FREE. Consider MBSR 8 week program this year. offered in [facility] every few months.R32 Unspecified urinary incontinenceReferral:Tawny Levin, PT, OCS, Physical TherapistFollow up:Please follow up with Sophie Chang NP for annual exam and pelvic painG89.4 Chronic pain syndromeComments:IstopThis report was requested by : Rosey Alonzo | Reference #: [id number]:You have been certified for medical cannabis. If you have any negative side effects please let me know We have discussed the program, side effects. Follow up in 8 weeks.
[2018-12-24 10:04] VITALS: BP 106/67
--- NOTE | 2018-12-24 11:05 | UC ---
Ear Complaint HPI - HPI Summary HPI Summary: 38 y/o female presents to the urgent care c/o pt has been in multiple times here for cough, ear pain, eye drainage. Pt is upset for needing to come back frequently for treatment. Pt had antibiotics for treatment already, and finished them and is continuing to have symptoms. unsure if she has had a fever. - History of Current Complaint Chief Complaint: UCRespiratory Stated Complaint: EYE/EAR PAIN Time Seen by Provider: 12/24/18 10:58 Hx Obtained From: Patient Hx Last Menstrual Period: this month Pain Intensity: 6 - Allergies/Home Medications Allergies/Adverse Reactions: Allergies Allergy/AdvReac Type Severity Reaction Status Date / Time latex Allergy Rash Verified 12/24/18 10:04 oxycodone Allergy Hives Verified 12/24/18 10:04 PMH/Surg Hx/FS Hx/Imm Hx - Surgical History Surgical History: Yes Surgery Procedure, Year, and Place: colonoscopies. ear tubes - Family History Known Family History: Negative: Seizure Disorder - Social History Alcohol Use: Rare Substance Use Type: None Substance Use Comment - Amount & Last Used: daily Smoking Status (MU): Never Smoked Tobacco Physical Exam Vital Signs: Initial Vital Signs Temp 100.1 F 12/24/18 09:55 Pulse 93 12/24/18 09:55 Resp 18 12/24/18 09:55 BP 106/67 12/24/18 09:55 Pulse Ox 100 12/24/18 09:55 Ear Complaint Course/Dx - Course Course Of Treatment: Pt with 2 weeks of symptoms getting worse. Pt Rx Amoxicillin PO and flonase nasal spray. Tessalon PO for cough. Discharge instructions explained to Pt. Advised to Return to the clinic or PCP if symptoms do not improve.Pt understood and agreed with plan of care. - Differential Dx/Diagnosis Differential Diagnosis/HQI/PQRI: Otitis Externa, Otitis Media, Perforated TM, URI, Other - conjunctivitis Provider Diagnosis: Acute bacterial sinusitis, Bacterial conjunctivitis of both eyes Discharge - Sign-Out/Discharge Documenting (check all that apply): Patient Departure - d/c home All imaging exams completed and their final reports reviewed: No Studies - Discharge Plan Condition: Stable Disposition: HOME Prescriptions: DOXYcycline CAP(*) [DOXYcycline 100MG CAP(*)] 100 mg PO BID #20 cap Fluconazole 150 MG (NF) [Diflucan 150 mg (NF)] 150 mg PO ONCE #1 tab Fluticasone NASAL SPRAY 50MCG* [Flonase NASAL SPRAY 50MCG*] 2 spray BOTH NARES DAILY #1 btl Ofloxacin 0.3% (Ear Drop)* [Floxin 0.3% OTIC.SANDRA (Ear Drop)] 1 drop BOTH EARS Q2HR #1 btl Patient Education Materials: Sinusitis (ED), Conjunctivitis (ED) Forms: *Work Release Referrals: Aissatou Mendieta MD [Primary Care Provider] - 3 Days Additional Instructions: 1- Please increase fluid intake and rest. take full course of antibiotics to avoid resistance. Take yogurts w/ probiotics or Culturelle to protect your GI system 2-Use Flonase as directed to help drain fluid. Also buy saline drops to clear sinuses 3- apply Ofloxacin ophthalmic c drops as directed to alleviate your conjunctivitis. Encourage hand washing to avoid spread. 3-Continue taking Ceterizine PO to alleviates sinus congestion. 4-Please f/u w/ your PCP in 3 days if symptoms do not improve for further management and treatment - Billing Disposition and Condition Condition: STABLE Disposition: Home
== END 2018-12-24 11:40 | disposition home or self-care (01) ==
LOC: UCEAST 09:35
DX: J01.90 Acute sinusitis, unspecified (principal); B96.89 Other specified bacterial agents as the cause of diseases classified elsewhere; H10.89 Other conjunctivitis
CPT/HCPCS: 99212; G0463

== ENCOUNTER 2019-01-10 17:03 | Emergency (ER) | payer BC, OTHER ==
--- OUTSIDE RECORDS SUMMARY | 2019-01-10 17:13 | XMS REPORT | Continuity of Care Document ---
:1980 External Reference #:[id number] Author Name Mary Luciano Care Team Providers Name Role Phone Aissatou Reynoso MD Primary Care Physician Unavailable Payers Date Identification Numbers Payment Provider Subscriber PayID: [id number] BS Facets Abdoul Astorga [address] [address] [place] [address] Policy Number: [id number] Kennedy/[employer] Medicaid Latisha Kennedy PayID: [id number] [address] [address] [place] [address] Family History Date Family Member(s) Observation Comments Father Hypertension Father Obesity Father Arthritis Father anxiety Father Depression Father Seasonal Allergies Father eczema Father Irritable bowel syndrome Father Alcoholism Father sleep narcolepsy Mother psychiatric disorder Mother Asthma Mother munchausen by proxy Children 1 Anxiety, depression, allergies, TB Children 2 Anxiety, asthma, allergies, Irritable bowel syndrome, sees trampoline team coach for "funny valve" First Brother Arthritis First [...] every 6 Unknown hours 108(90Base) mcg/Act Aerosol Zyrtec Allergy 1 by mouth every Unknown 10mg day Tablets Clonazepam take 1/2 to 1 Unknown 0.5mg Tablets tablet as needed anxiety and sleep History Medications Xanax one by mouth twice Unknown - 12/27/2018 0.25mg Tablets daily as needed for anxiety Azelastine HCL one drop each eye twice Unknown - 12/27/2018 (Ophthalmic) a day 0.05% Solution Amoxicillin/Clavulanate take one tablet q12 Unknown - 2018 Potassium hours for 10 days 875-125mg Tablets Vital Signs Date Vital Result Comment 01/06/2019 9:21am Height 64 inches 5'4" Weight 124.00 lb Heart Rate 90 /min BP Systolic 118 mmHg BP Diastolic 69 mmHg O2 % BldC Oximetry 99 % BMI (Body Mass Index) 21.3 kg/m2 Last Menstrual Period [id number] 12/22/2018 8:00am Height 64 inches 5'4" Weight 125.12 lb Heart Rate 100 /min BP Systolic 102 mmHg BP Diastolic 70 mmHg O2 % BldC Oximetry 98 % BMI (Body Mass Index) 21.5 kg/m2 Results Test Date Facility Test Result H/L Range Note Thyroid Panel 12/22/2018 [facility] Free T4 (Free <pending> [address] Thyroxine) [place] [address] [phone] Thyroxine <pending> TSH (Thyroid Stim Horm) <pending> Laboratory test 12/22/2018 [facility] Thyroperoxidase AB < pending> finding [address] [place] [address] [phone] Thyroglobulin AB <pending> T3 Free <pending> Selenium <pending> Hemoglobin A1c (Glyco HGB) <pending> Laboratory test 12/22/2018 [facility] Insulin Level <pending> finding [address] [place] [address] [phone] Laboratory test 12/22/2018 [facility] Copper, Serum <pending> finding [address] [place] [address] [phone] Zinc Serum <pending> Vitamin B12 And Folate 12/22/2018 [facility] Vitamin B12 < pending> Serum [address] [place] [address] [phone] Folic Acid (Folate) <pending> Laboratory test 12/22/2018 [facility] Methylmalonic Acid < pending> finding [address] [place] [address] [phone] Plan of Treatment Future Appointment(s):03/24/2019 8:00 am - Kirsten Nolan MD at [facility]01/06/2019 - Sophie Chang, N.P.Z00.01 Encounter for general adult medical examination with abnormal kbpnmredF72.4 Uterovaginal prolapse, unspecified
[2019-01-10 17:27] VITALS: BP 112/74
--- NOTE | 2019-01-10 17:35 | UC ---
Lower Extremity/Ankle HPI - HPI Summary HPI Summary: Patient is a 38-year-old female who presents to the urgent care with chief complaint having pain and swelling in the left leg. The patient reports that she has been stung in the area no she's having swelling, pain and redness. She has no other complaints. - History of Current Complaint Chief Complaint: MIKEkin Stated Complaint: BEE STING THREE DAYS AGO Time Seen by Provider: 01/10/19 17:21 Hx Obtained From: Patient Hx Last Menstrual Period: 12/30/2018 Onset/Duration: Gradual Onset Severity Initially: Mild Severity Currently: Mild Pain Intensity: 0 - Allergies/Home Medications Allergies/Adverse Reactions: Allergies Allergy/AdvReac Type Severity Reaction Status Date / Time latex Allergy Rash Verified 01/10/19 17:24 oxycodone Allergy Hives Verified 01/10/19 17:24 Home Medications: Home Medications Cetirizine HCl [Zyrtec] 10 mg PO DAILY 01/10/19 [History Confirmed 01/10/19] PMH/Surg Hx/FS Hx/Imm Hx Previously Healthy: Yes - Surgical History Surgical History: Yes Surgery Procedure, Year, and Place: colonoscopies. ear tubes - Family History Known Family History: Positive: None - Pt denies FMHX, Non-Contributory Negative: Seizure Disorder - Social History Alcohol Use: Rare Substance Use Type: None Substance Use Comment - Amount & Last Used: daily Smoking Status (MU): Never Smoked Tobacco Review of Systems All Other Systems Reviewed And Are Negative: Yes Constitutional: Positive: Negative Skin: Positive: Other - Swelling and redness in the left lower extremity Eyes: Positive: Negative ENT: Positive: Negative Respiratory: Positive: Negative Cardiovascular: Positive: Negative Gastrointestinal: Positive: Negative Genitourinary: Positive: Negative Motor: Positive: Negative Neurovascular: Positive: Negative Musculoskeletal: Positive: Negative Neurological: Positive: Negative Psychological: Positive: Negative Is Patient Immunocompromised?: No Physical Exam - Summary Physical Exam Summary: VITAL SIGNS: Reviewed. GENERAL: Patient is a well developed and nourished female who is lying comfortably in the stretcher. Patient is not in any acute respiratory distress. HEAD AND FACE: No signs of trauma. No ecchymosis, hematomas or skull depressions. No sinus tenderness. EYES: PERRLA, EOMI x 2, No injected conjunctiva, no nystagmus. EARS: Hearing grossly intact. Ear canals and tympanic membranes are within normal limits. MOUTH: Oropharynx within normal limits. NECK: Supple, trachea is midline, no adenopathy, no JVD, no carotid bruit, no c- spine tenderness, neck with full ROM. CHEST: Symmetric, no tenderness at palpation LUNGS: Clear to auscultation bilaterally. No wheezing or crackles. CVS: Regular rate and rhythm, S1 and S2 present, no murmurs or gallops appreciated. ABDOMEN: Soft, non-tender. No signs of distention. No rebound no guarding, and no masses palpated. Bowel sounds are normal. EXTREMITIES: FROM in all major joints, no edema, no cyanosis or clubbing. NEURO: Alert and oriented x 3. No acute neurological deficits. Speech is normal and follows commands. SKIN: Dry and warm. Positive erythema, swelling and slight tenderness in the left ankle area around the lateral malleolus. Triage Information Reviewed: Yes Appearance: Well-Appearing Vital Signs: Initial Vital Signs Temp 99.6 F 01/10/19 17:25 Pulse 86 01/10/19 17:25 Resp 18 01/10/19 17:25 BP 112/74 01/10/19 17:25 Pulse Ox 100 01/10/19 17:25 Vital Signs Reviewed: Yes Lower Extremity Course/Dx - Course Course Of Treatment: In the ED course the patient was given a prescription for Bactrim. Patient will be discharged home with follow-up with PCP. She was recommended to apply ice, take medication as indicated an elevated as much as she can. Patient is hemodynamically stable alert and oriented 3 Patient also was given 1 dose of the focus and since she has history of vaginitis after antibiotics - Differential Dx/Diagnosis Provider Diagnosis: Cellulitis of left lower extremity Discharge - Sign-Out/Discharge Documenting (check all that apply): Patient Departure All imaging exams completed and their final reports reviewed: No Studies - Discharge Plan Condition: Stable Disposition: HOME Prescriptions: Fluconazole 150 MG (NF) [Diflucan 150 mg (NF)] 150 mg PO ONCE #1 tab Sulfamethox/Trimethoprim DS* [Bactrim DS 800/160 TAB*] 1 tab PO BID #20 tab Patient Education Materials: Cellulitis (ED) Referrals: Aissatou Mendieta MD [Primary Care Provider] - Additional Instructions: Take medications as instructed Increase your fluid intake F/U with PCP in the next 2-3 days Return to the UC if symptoms worsen - Billing Disposition and Condition Condition: STABLE Disposition: Home
== END 2019-01-10 18:00 | disposition home or self-care (01) ==
LOC: UCEAST 17:03
DX: L03.116 Cellulitis of left lower limb (principal); Z88.5 Allergy status to narcotic agent; Z91.040 Latex allergy status
CPT/HCPCS: 99212; G0463

== ENCOUNTER 2019-03-14 15:59 | Emergency (ER) | payer BC, OTHER ==
--- OUTSIDE RECORDS SUMMARY | 2019-03-14 16:05 | XMS REPORT | Continuity of Care Document ---
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 Problems Description No Information Available Social History Type Date Description Comments Sex Unknown Tobacco Use Start: Unknown Never Smoked Cigarettes ETOH Use Denies alcohol use Recreational Drug Use Sporadically uses Marijuana Tobacco Use Start: Unknown End: Patient is a former smoker Unknown Smoking Status Reviewed: 03/03/19 Patient is a former smoker Exercise Type/Frequency Exercises regularly Allergies, Adverse Reactions, Alerts Active Allergies Reaction Severity Comments Date Percocet Facial swelling 12/22/2018 Medications Active Medications SIG Qnty Indications Ordering Provider Date Albuterol Sulfate HFA one puff every 6 Unknown hours 108(90Base) mcg/Act Aerosol Zyrtec Allergy 1 by mouth every Unknown 10mg day Tablets Clonazepam take 1/2 to 1 Unknown 0.5mg Tablets tablet as needed anxiety and sleep Immunizations Description No Information Available Vital Signs Date Vital Result Comment 03/03/2019 9:19am Height 64 inches 5'4" Weight 127.12 lb Heart Rate 68 /min BP Systolic 96 mmHg BP Diastolic 66 mmHg Body Temperature 97.3 F BMI (Body Mass Index) 21.8 kg/m2 01/06/2019 9:21am Height 64 inches 5'4" Weight 124.00 lb Heart Rate 90 /min BP Systolic 118 mmHg BP Diastolic 69 mmHg O2 % BldC Oximetry 99 % BMI (Body Mass Index) 21.3 kg/m2 Last Menstrual Period [id number] Results Test Date Facility Test Result H/L Range Note Laboratory test 01/27/2019 [facility] Vitamin D 31.8 ng/mL Normal 20-[address]) [place] [address] [phone] Folic Acid (Folate) 17.70 ng/mL >3.99 Vitamin B12 508 pg/mL Normal 180-914 2 Lipid Profile 01/27/2019 [facility] Triglycerides 63 mg/dL 3 (Trig/Chol/HDL) [address] [place] [address] [phone] Cholesterol 126 mg/dL 4 HDL Cholesterol 57.3 mg/dL 5 LDL Cholesterol 56 mg/dL 6 Laboratory test 01/27/2019 [facility] Thyroxine 7.42 Normal 6.09-12.[address] g/[place] [address] [phone] TSH (Thyroid Stim Horm) 1.50 mcIU/mL Normal 0.34-5.60 Free T4 (Free Thyroxine) 0.89 ng/dL Normal 0.61-1.12 T3 Free 4.10 pg/mL High 2.5-3.9 Thyroperoxidase AB 1.64 IU/mL Normal <9 Insulin Level 3.9 mcIU/mL Normal 2.0-16.0 Thyroglobulin AB 0.0 IU/mL <4.0 Hemoglobin A1c (Glyco HGB) 5.4 % Normal 4.0-5.6 7 Selenium 115 ng/mL 70-150 8 Copper, Serum 1.01 g/mL 0.75-1.45 9 Zinc Serum 0.82 g/mL 0.66-1.10 10 Heavy Metal Blool 01/27/2019 [facility] Arsenic <1 ng/mL 0- [address] [place] [address] [phone] Lead <1.0 g/dL 0.0-4.9 12 Mercury 1 ng/mL 0-9 13 Cadmium 0.2 ng/mL 0.0-4.[address] [place] [address] <SEE NOTE> [address] [facility] [address] [facility] Guardian First Name LATISHA Neff Guardian Last Name [facility] Venous/Capillary Heavy Metals Venous Patient Race WHITE Submitting Laboratory Phone [phone] 16 MTHFR 01/27/2019 [facility] MTHFR C677T Heterozygous Abnormal Negative [place] [address] [phone] MTHFR Interpretation See Comment 17 MTHFR Reviewed By See Comment 18 MTHFR W8620t Mutation Heterozygous Abnormal Negative Mthac Interpretation See Comment 19 Mthac Reviewed By See Comment 20 Laboratory test 01/27/2019 [facility] Methylmalonic 0.14 <= 0.[address] Acid Mma nmol/[place] [address] [phone] Laboratory test 01/06/2019 [facility] Cytology SEE RESULT [address] [place] [address] [phone] Thyroid Panel 12/22/2018 [facility] Free T4 (Free <pending> Thyroxine) [place] [address] [phone] Thyroxine <pending> TSH (Thyroid Stim Horm) <pending> Laboratory test 12/22/2018 [facility] Thyroperoxidase AB < pending> [place] [address] [phone] Thyroglobulin AB <pending> T3 Free <pending> Selenium <pending> Hemoglobin A1c (Glyco HGB) <pending> Laboratory test 12/22/2018 [facility] Insulin Level <pending> [place] [address] [phone] Laboratory test 12/22/2018 [facility] Copper, Serum <pending> [place] [address] [phone] Zinc Serum <pending> Vitamin B12 And Folate 12/22/2018 [facility] Vitamin B12 < pending> [place] [address] [phone] Folic Acid (Folate) <pending> Laboratory test 12/22/2018 [facility] Methylmalonic Acid < pending> [place] [address] [phone] 1 Total 25-Hydroxyvitamin D2 and D3 (25-OH-VitD) <10 ng/mL (severe deficiency) 10-19 ng/mL (mild to moderate deficiency) 20-50 ng/mL (optimum levels) 51-80 ng/mL (increased risk of hypercalciuria) >80 ng/mL (toxicity possible) 2 Normal Range 180 to 914 Indeterminate Range 145 to 180 Deficient Range <145 3 Desirable: <150 Borderline High: 150-199 High: 200-499 Very High: >500 4 Desirable: <200 Borderline High: 200-239 High: >239 5 Low: <40 Desirable: 40-60 High: >60 6 Desirable: <100 Near Optimal: 100-129 Borderline High: 130-159 High: 160-189 Very High: >189 7 Therapeutic target for the treatment of diabetes mellitus patients is <7% HBA1C, and in selective patients <6.0%. Please refer to [place] [employer] diabetic care guidelines for further information. 8 ADDITIONAL INFORMATION This test was developed and its performance characteristics determined by [facility] in a manner consistent with CLIA requirements. This test has not been cleared or approved by the U.S. Food and Drug Administration. Test Performed by: [facility] - [address] [address] 9 ADDITIONAL INFORMATION This test was developed and its performance characteristics determined by [facility] in a manner consistent with CLIA requirements. This test has not been cleared or approved by the U.S. Food and Drug Administration. Test Performed by: [facility] - [address] [address] 10 ADDITIONAL INFORMATION This test was developed and its performance characteristics determined by [facility] in a manner consistent with CLIA requirements. This test has not been cleared or approved by the U.S. Food and Drug Administration. Test Performed by: [facility] - [address] [address] 11 ADDITIONAL INFORMATION This test was developed and its performance characteristics determined by [facility] in a manner consistent with CLIA requirements. This test has not been cleared or approved by the U.S. Food and Drug Administration. 12 ADDITIONAL INFORMATION Testing performed by Inductively Coupled Plasma-Mass Spectrometry (ICP-MS). This test was developed and its performance characteristics determined by [facility] in a manner consistent with CLIA requirements. This test has not been cleared or approved by the U.S. Food and Drug Administration. 13 ADDITIONAL INFORMATION This test was developed and its performance characteristics determined by [facility] in a manner consistent with CLIA requirements. This test has not been cleared or approved by the U.S. Food and Drug Administration. 14 ADDITIONAL INFORMATION This test was developed and its performance characteristics determined by [facility] in a manner consistent with CLIA requirements. This test has not been cleared or approved by the U.S. Food and Drug Administration. 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 MTHFR C677T carriers are not at increased risk for thrombosis in the absence of hyperhomocysteinemia. In the absence of alternative causes, heterozygous carriers of MTHFR C677T are not at increased risk for hyperhomocysteinemia. Hyperhomocysteinemia is a relatively weak risk factor for both venous thromboembolism and arterial thrombosis. The MTHFR C677T gene mutation test does not detect other causes of hyperhomocysteinemia due to acquired disorders (renal failure, zinc deficiency, leukemia, psoriasis, or antifolate drug therapy). If clinically indicated, suggest Coagulation Consultation 43702 (Thrombophila Profile) to complete the evaluation for an inherited or acquired thrombosing disorder (i.e., thrombophilia). Consider genetic consultation and counseling of potentially affected family members regarding laboratory testing. ADDITIONAL INFORMATION This test is a direct mutation analysis using PCR amplification, signal generation and release by cleavage of sequence specific alleles ([employer], [employer], [place], [place]). This test has been modified from the transit driver's instructions. Its performance characteristics were determined by [facility] in a manner consistent with CLIA requirements. This test has not been cleared or approved by the U.S. Food and Drug Administration. 18 RESULT: EDDIE Wu 19 This individual DOES have the Methylenetetrahydrofolate reductase (MTHAC) A6490M gene mutation on ONE allele (heterozygous mutant). MTHAC E4101A carriers are not at increased risk for thrombosis in the absence of hyperhomocysteinemia. In the absence of alternative causes, heterozygous carriers of MTHAC D3728J are not at increased risk for hyperhomocysteinemia. Hyperhomocysteinemia is a relatively weak risk factor for both venous thromboembolism and arterial thrombosis. The MTHAC S6956M gene mutation test does not detect other causes of hyperhomocysteinemia due to acquired disorders (renal failure, zinc deficiency, leukemia, psoriasis, or antifolate drug therapy). If clinically indicated, suggest Coagulation Consultation 82815 (Thrombophila Profile) to complete the evaluation for an inherited or acquired thrombosing disorder (i.e., thrombophilia). Consider genetic consultation and counseling of potentially affected family members regarding laboratory testing. ADDITIONAL INFORMATION This test is a direct mutation analysis using PCR amplification, signal generation and release by cleavage of sequence specific alleles ([employer], [employer], [place], [place]). This test has been modified from the transit driver's instructions. Its performance characteristics were determined by [facility] in a manner consistent with CLIA requirements. This test has not been cleared or approved by the U.S. Food and Drug Administration. 20 RESULT: EDDIE Wu This test is a direct mutation analysis using PCR amplification, signal generation and release by cleavage of sequence specific alleles ([employer], [employer], [place], [place]). This test has been modified from the transit driver's instructions. Its performance characteristics were determined by [facility] in a manner consistent with CLIA requirements. This test has not been cleared or approved by the U.S. Food and Drug Administration. Test Performed by: [facility] - [address] [address] 21 ADDITIONAL INFORMATION This test was developed and its performance characteristics determined by [facility] in a manner consistent with CLIA requirements. This test has not been cleared or approved by the U.S. Food and Drug Administration. Test Performed by: [facility] - [address] [address] 22 SEE RESULT BELOW Name: LATISHA KENNEDY : [address]: Sophie Chang NP Acct: [id number] Unit: [id number] AGE: 38 Location: [facility] Re01/06/19 SEX: F Status: REG REF SPEC: [id number] DEISY: 01/06/19-[address]: Sophie Chang TELEMETRY RN REQ: [id number] RECD: 01/06/198661 STATUS: SOUT _ ORDERED: TP IMAGE ANALYS, HAND BANDER PHYS INTERP, HPV/Thin Prep COMMENTS: [id number] Negative for Intraepithelial lesion or Malignancy Reactive cellular changes associated with Inflammation (includes typical repair) Date Time Test Result Flag (u) Normal Range 01/06/19 1015 HPV RNA Negative Negative The high-risk HPV types detected by the assay include: 16, 18, 31, 33, 35, 39, 45, 51, 52, 56, 58, 59, 66, and 68. A. Ectocervical/Endocervical Specimen Adequacy: Satisfactory of evaluation Transformation zone component identified Patient Information: HPV: High risk HPV RNA testing regardless of pap results. Actual Specimen Date: 01/06/19 LMP If Unknown: Last Menstrual Period Not Given. ?: N Post Menopausal?: N Hysterectomy?: N Signed by and Reported on: La Villar MD 01/07/19 2831 This Pap test was evaluated with the assistance of the [employer] Medical Systems[employer] Test Imaging System. Due to cytologic findings at the certified dialysis technician microscope, comprehensive manual rescreening by a Water Treatment Plant Operator may be required. The Pap Smear is a screening test designed to aid in the detection of premalignant and malignant conditions of the uterine cervix. It is not a diagnostic procedure and should not be used as the sole means of detecting cervical cancer. Both false- positive and false- negative reports do occur. Depending on your risk status, a Pap smear should be obtained and evaluated every 1-3 years. END OF REPORT DEPARTMENT OF PATHOLOGY, [address] [place] [address] Du Almazan M.D. Director [facility] # [id number] Procedures Description No Information Available Medical Devices Description No Information Available Encounters Type Date Location Provider Dx Diagnosis Office Visit 12/22/2018 [facility] Rosey Alonzo, G43.809 Other migraine, not 8:00a [facility] TELEMETRY RN intractable, without status migrainosus J45.998 Other asthma M79.7 Fibromyalgia F41.9 Anxiety disorder, unspecified R32 Unspecified urinary incontinence G89.4 Chronic pain syndrome Assessments Date Code Description Provider 03/03/2019 E72.12 Methylenetetrahydrofolate reductase deficiency Rosey Alonzo, TELEMETRY RN 03/03/2019 M79.7 Fibromyalgia Rosey Alonzo, TELEMETRY RN 03/03/2019 F41.9 Anxiety disorder, unspecified Rosey Alonzo, TELEMETRY RN 01/06/2019 Z01.411 Encounter for gynecological examination Sophie Chang N.P. (general) (routine) 01/06/2019 N81.4 Uterovaginal prolapse, unspecified Orestes Zayas.Cornelio 01/06/2019 Z11.51 Encounter for screening for human Sophie Chang N.P. papillomavirus (HPV) 12/22/2018 G43.809 Other migraine, not intractable, without Rosey Alonzo , TELEMETRY RN status migrainosus 12/22/2018 J45.998 Other asthma Rosey Alonzo, MASSIEL 12/22/2018 M79.7 Fibromyalgia Rosey Alonzo, TELEMETRY RN 12/22/2018 F41.9 Anxiety disorder, unspecified Rosey Cheri, TELEMETRY RN 12/22/2018 R32 Unspecified urinary incontinence Rosey Alonzo, TELEMETRY RN 12/22/2018 G89.4 Chronic pain syndrome Rosey Alonzo NP Plan of Treatment Future Appointment(s):06/02/2019 9:00 am - Rosey Alozno NP at [facility]03/24/2019 8:00 am - Kirsten Nolan MD [facility]03/03/2019 - Rosey Alonzo, NPE72.12 Methylenetetrahydrofolate reductase deficiencyFollow up:follow up in 3 monthsRecommendations:The type of B vitamins you take is important. Be sure to go for the activated forms of folate, B6, and B12: B - complex - "active" "methylated" L-5-MTHF Folate: Methylfolate B6: Ctbsihyeu-9-Yvingmkiv(P5P) B12: Methylcobalamine support liver detoxification: 4. Milk thistle and Nettle tea 5. exercise - sweating! M79.7 FibromyalgiaReferral:Easton Ellis MD, RheumatologyRecommendations:plan to have an evaluation by Dr. Ellis for fibromyalgia and joint pain - elevated ESR. Continue elimination of dairy and gluten at this time.F41.9 Anxiety disorder, unspecifiedRecommendations:Continue following with therapist. Taking a B complex may help with symptoms. Engaging any mindfulness practice daily will also help heal your HPA axis dysregulation. guided meditation, consider [facility] dejah STRESS FREE. Consider MBSR (mindfulness-Based Stress Reduction) 8 week program this year. offered in [facility] every few months. Consider FREE MBSR online program: [email or web address] Do ??4-7-8?? breathing: Breathe in through nose for 4 counts Hold your breath for 7 counts Exhale through mouth for 8 counts This combination of count ratio slows heart rate and relaxes the sympathetic nervous system. Adopt yoga practice- Available reviews of a wide range of yoga practices suggest they can reduce the impact of exaggerated stress responses and may be helpful for both anxiety and depression. In this respect, yoga functions like other self- soothing techniques, such as meditation, relaxation, exercise, or even socializing with friends. By reducing perceived stress and anxiety, yoga appears to modulate stress response systems. This, in turn, decreases physiological arousal ?? for example, reducing the heart rate, lowering blood pressure, and easing respiration. There is also evidence that yoga practices help increase heart rate variability, an indicator of the body's ability to respond to stress more flexibly. Functional Status Description No Information Available Mental Status Description No Information Available Referrals Refer to Dr Reason for Referral Status Appt Date Easton Ellis MD Created [address] [facility] [place] [address] [phone] Tawny Levin, PT, OCS Sent [address] [place] [address] [phone]
[2019-03-14 16:24] VITALS: BP 107/66
--- NOTE | 2019-03-14 16:47 | UC ---
Respiratory Complaint HPI - HPI Summary HPI Summary: 38-year-old female comes in with a chief complaint of one week or longer upper respiratory tract infection symptoms with worsening wheezing and chest congestion. Initially symptoms started out with nasal and throat congestion it' s moved into her chest. She has a history of asthma she's been wheezing and feeling congestion in her chest. She has lost her albuterol inhaler. No recent fevers measured. hard time getting any sputum up. Shortness of breath is worse with activity. - History of Current Complaint Chief Complaint: UCGeneralIllness Stated Complaint: COUGH, AND ASTHMA Time Seen by Provider: 03/14/19 16:35 Hx Last Menstrual Period: 02/20/19 Pain Intensity: 0 - Allergies/Home Medications Allergies/Adverse Reactions: Allergies Allergy/AdvReac Type Severity Reaction Status Date / Time latex Allergy Rash Verified 03/14/19 16:24 oxycodone Allergy Hives Verified 03/14/19 16:24 Home Medications: Home Medications Norethindrone [Tulana] 1 tab PO 03/14/19 [History] PMH/Surg Hx/FS Hx/Imm Hx Previously Healthy: Yes Respiratory History: Asthma - Surgical History Surgical History: Yes Surgery Procedure, Year, and Place: colonoscopies. ear tubes - Family History Known Family History: Positive: None - Pt denies FMHX, Non-Contributory Negative: Seizure Disorder - Social History Alcohol Use: Rare Substance Use Type: None Substance Use Comment - Amount & Last Used: daily Smoking Status (MU): Never Smoked Tobacco Review of Systems All Other Systems Reviewed And Are Negative: Yes Constitutional: Positive: Other - SEE HPI Skin: Positive: Negative Eyes: Positive: Negative ENT: Positive: Nasal Discharge Respiratory: Positive: Shortness Of Breath, Cough, Other - SEE HPI Cardiovascular: Positive: Negative Gastrointestinal: Positive: Negative Motor: Positive: Negative Neurovascular: Positive: Negative Musculoskeletal: Positive: Negative Neurological: Positive: Negative Psychological: Positive: Negative Is Patient Immunocompromised?: No Physical Exam Triage Information Reviewed: Yes Appearance: No Pain Distress, Well-Nourished, Ill-Appearing - MILD Vital Signs: Initial Vital Signs Temp 99.4 F 03/14/19 16:17 Pulse 80 03/14/19 16:17 Resp 16 03/14/19 16:17 BP 107/66 03/14/19 16:17 Pulse Ox 100 03/14/19 16:17 Vital Signs Reviewed: Yes Eye Exam: Normal Eyes: Positive: Conjunctiva Clear ENT: Positive: Pharyngeal erythema, Nasal congestion, TMs normal Neck: Positive: Supple Respiratory: Positive: No respiratory distress, Rhonchi, Wheezing Cardiovascular: Positive: RRR Musculoskeletal: Positive: Strength Intact, ROM Intact Neurological: Positive: Alert Psychological: Positive: Age Appropriate Behavior Skin Exam: Normal Respiratory Course/Dx - Course Course Of Treatment: DISCUSSED VIRAL VERSES BACTERIAL INFECTIONS AND THE ROLE OF ANTIBIOTICS. THE PATIENT PREFERS TO BE ON ANTIBIOTICS AT THIS TIME. - Differential Dx/Diagnosis Provider Diagnosis: Bronchitis, Asthma exacerbation Discharge ED - Sign-Out/Discharge Documenting (check all that apply): Patient Departure All imaging exams completed and their final reports reviewed: No Studies - Discharge Plan Condition: Stable Disposition: HOME Prescriptions: Albuterol HFA INHALER* [Ventolin HFA Inhaler*] 2 puff INH Q4H PRN #1 mdi PRN Reason: Wheezing Azithromyxin BERTHA (NF) [Z-Bertha (Zithromax) 250 mg tabs #6] 2 tab PO .TODAY, THEN 1 DAILY #6 tab predniSONE TAB* [Deltasone 20 MG TAB*] 40 mg PO DAILY #10 tab Patient Education Materials: Asthma (ED), Acute Bronchitis (ED) Forms: *Work Release Referrals: Aissatou Mendieta MD [Primary Care Provider] - Additional Instructions: FOLLOW UP WITH YOUR DOCTOR IF NOT COMPLETELY IMPROVED. GET RECHECKED SOONER IF YOUR CONDITION WORSENS OR ANY QUESTIONS OR CONCERNS. - Billing Disposition and Condition Condition: STABLE Disposition: Home
== END 2019-03-14 16:53 | disposition home or self-care (01) ==
LOC: UCEAST 15:59
DX: J40 Bronchitis, not specified as acute or chronic (principal); Z88.5 Allergy status to narcotic agent; Z91.040 Latex allergy status
CPT/HCPCS: 99212; G0463

== ENCOUNTER 2019-07-07 15:32 | Emergency (ER) | payer BC, OTHER ==
[2019-07-07 15:51] VITALS: BP 127/90
--- NOTE | 2019-07-07 16:15 | UC ---
Throat Pain/Nasal Gerald HPI - HPI Summary HPI Summary: 38-year-old woman comes in with a chief complaints of sinusitis symptoms for about 10 days. She has had Runny nose and sore throat. Also has left ear pain. She has been using her albuterol inhaler for wheezing earlier in her illness. The wheezing has improved since then. She has sinus pressure. Patient also reports that she gets extremely emotional around her menstrual cycle and requests a referral to obstetrics and gynecology. She is on control pills. Her last period started 4 days ago and just finished. Denies any pain. Her last child is 2 years old now she's been having symptoms around her menstrual cycle since that time. - History of Current Complaint Chief Complaint: UCEar Stated Complaint: SINUS COMPLAINT Time Seen by Provider: 07/07/19 15:51 Hx Last Menstrual Period: 3 days ago Pain Intensity: 6 - Allergies/Home Medications Allergies/Adverse Reactions: Allergies Allergy/AdvReac Type Severity Reaction Status Date / Time latex Allergy Rash Verified 07/07/19 15:53 oxycodone Allergy Hives Verified 07/07/19 15:53 PMH/Surg Hx/FS Hx/Imm Hx Previously Healthy: Yes Respiratory History: Asthma - Surgical History Surgical History: Yes Surgery Procedure, Year, and Place: colonoscopies. ear tubes - Family History Known Family History: Positive: None - Pt denies FMHX, Non-Contributory Negative: Seizure Disorder - Social History Alcohol Use: Rare Substance Use Type: None Substance Use Comment - Amount & Last Used: daily Smoking Status (MU): Never Smoked Tobacco Review of Systems All Other Systems Reviewed And Are Negative: Yes Constitutional: Positive: Other - SEE HPI Skin: Positive: Negative Eyes: Positive: Negative ENT: Positive: Sore Throat, Ear Ache, Nasal Discharge, Sinus Congestion, Sinus Pain/Tenderness Respiratory: Positive: Other - SEE HPI Cardiovascular: Positive: Negative Gastrointestinal: Positive: Negative Motor: Positive: Negative Neurovascular: Positive: Negative Musculoskeletal: Positive: Negative Neurological: Positive: Negative Psychological: Positive: Negative Is Patient Immunocompromised?: No Physical Exam Triage Information Reviewed: Yes Appearance: Well-Appearing, No Pain Distress, Well-Nourished Vital Signs: Initial Vital Signs Temp 99.9 F 07/07/19 15:48 Pulse 90 07/07/19 15:48 Resp 15 07/07/19 15:48 BP 127/90 07/07/19 15:48 Pulse Ox 100 07/07/19 15:48 Vital Signs Reviewed: Yes Eye Exam: Normal Eyes: Positive: Conjunctiva Clear ENT: Positive: Pharyngeal erythema, Nasal congestion, Nasal drainage, Other - Left tragus is tender to palpation. TMs are normal. Neck: Positive: Supple Respiratory: Positive: Lungs clear, Normal breath sounds, No respiratory distress Cardiovascular: Positive: RRR Musculoskeletal: Positive: Strength Intact, ROM Intact Neurological: Positive: Alert, Muscle Tone Normal Psychological: Positive: Age Appropriate Behavior Skin Exam: Normal Throat Pain/Nasal Course/Dx - Course Course Of Treatment: Will treat for sinusitis symptoms of duration of these 10 days and also will treat otitis externa. For her menstrual symptoms follow-up with obstetrics gynecology. - Differential Dx/Diagnosis Provider Diagnosis: Sinusitis, Premenstrual dysphoria, Left otitis externa Discharge ED - Sign-Out/Discharge Documenting (check all that apply): Patient Departure All imaging exams completed and their final reports reviewed: No Studies - Discharge Plan Condition: Stable Disposition: HOME Prescriptions: Albuterol HFA INHALER* [Ventolin HFA Inhaler*] 2 puff INH Q4H PRN #1 mdi PRN Reason: Wheezing Amoxicillin/Clavulanate TAB* [Augmentin TAB 875*] 875 mg PO BID #20 tab Ofloxacin 0.3% (Ear Drop)* [Floxin 0.3% OTIC.SANDRA (Ear Drop)] 5 drop LEFT EAR BID #1 btl Patient Education Materials: Sinusitis (ED), Otitis Externa (ED) Referrals: Aissatou Mendieta MD [Primary Care Provider] - Ivonne Barros MD [Medical Doctor] - Kirsten Nolan MD [Medical Doctor] - Additional Instructions: FOLLOW UP WITH YOUR PRIMARY CARE DOCTOR IF NOT COMPLETELY IMPROVED. FOLLOW UP WITH OBGYN. GET REEVALUATED SOONER IF NOT IMPROVED OR WORSE OR ANY QUESTIONS OR CONCERNS. - Billing Disposition and Condition Condition: STABLE Disposition: Home
== END 2019-07-07 16:20 | disposition home or self-care (01) ==
LOC: UCEAST 15:32
DX: J32.9 Chronic sinusitis, unspecified (principal); F32.81 Premenstrual dysphoric disorder; H60.92 Unspecified otitis externa, left ear; J45.909 Unspecified asthma, uncomplicated; Z91.040 Latex allergy status; Z88.5 Allergy status to narcotic agent
CPT/HCPCS: 99212; G0463